=== PATIENT | female | born 1975 | race Caucasian/White ===

== ENCOUNTER → 2018-05-23 06:43 | Outpatient (CLI) | payer OTHER, SELFPAY ==
--- NOTE | 2018-05-23 | DI.MRI.S_ITS ---
PROCEDURE: MR BRAIN (PITUITARY) WWO CON INDICATIONS: hyperprolactinemia TECHNIQUE: Noncontrast sagittal and axial FLAIR, axial gradient echo, axial diffusion and ADC through the brain. Thin-slice sagittal and coronal T1 spin echo, coronal T2 fast spin echo through the pituitary. After the administration contrast, optional dynamic coronal T1 spin echo, thin-slice coronal and sagittal T1 spin echo images through the pituitary fossa; axial T1 spin echo with fat saturation through the brain. COMPARISON: None. FINDINGS: Image quality: Excellent. Pituitary Gland: The pituitary gland shows expected enhancement, with no area of mass lesion producing focal increased or decreased enhancement over the dynamic contrast enhancement phase of this study. Note is made of a vertical orientation of the pituitary stalk, and the right gland craniocaudad dimension is only slightly greater than that on the left (7 mm versus 6 mm). CSF Spaces: Ventricles are normal in size and shape. Basal cisterns are patent. No extra-axial fluid collections. Brain: No intracranial bleeds or mass effects. No abnormal intracranial enhancement. Peck-white matter interface is intact. Diffusion weighted images demonstrate no acute ischemic insults. Brainstem is normal. Normal intravascular flow voids are present. Skull and face: Calvarial marrow is normal in signal. Orbits appear normal. Sinuses: Sinuses and mastoids are clear. IMPRESSION: 1. A pituitary macroadenoma is not present. 2. A discrete pituitary microadenoma is not found. The right pituitary gland craniocaudad dimension is slightly greater than that on the left, 7 mm versus 6 mm, but there is no secondary leftward deviation of the midline pituitary stalk. Overall, an identifiable source of reported hyperprolactinemia is not found. 3. The brain parenchyma elsewhere appears normal. Dictated by: Suraj Vallejo M.D. on 05/23/2018 at 10:24 Approved by: Suraj Vallejo M.D. on 05/23/2018 at 10:29
== END ==
PROVIDERS: Visit Provider Obstetrics & Gynecology
DX: E22.1 Hyperprolactinemia (principal)
CPT/HCPCS: 70553; A9579

== ENCOUNTER → 2020-04-07 14:53 | Outpatient (CLI) | payer OTHER, SELFPAY ==
--- NOTE | 2020-04-07 | DI.MG.S_ITS ---
BILATERAL DIGITAL SCREENING MAMMOGRAM 3D/2D WITH CAD: 04/07/2020 CLINICAL: Routine screening. Comparison is made to exam dated: 01/08/2019 mammogram - [facility]. The tissue of both breasts is heterogeneously dense. This may lower the sensitivity of mammography. Current study was also evaluated with a Computer Aided Detection (CAD) system. No significant masses, calcifications, or other findings are seen in either breast. There has been no significant interval change. IMPRESSION: NEGATIVE There is no mammographic evidence of malignancy. A 1 year screening mammogram is recommended. This exam was interpreted at Station ID: [id number]. NOTE: For mammograms, a report in lay terms will be sent to the patient. Approximately 15% of breast malignancies will not be visualized mammographically. In the management of a palpable breast mass, a negative mammogram must not discourage biopsy of a clinically suspicious lesion. Electronically Signed By: Flip orta/apurva:04/07/2020 15:35:54 letter sent: Normal Exam ACR BI-RADS Category 1: Negative [id number]
== END ==
PROVIDERS: PCP Family Medicine; Referring Provider Family Medicine; Visit Provider Family Medicine
DX: Z12.31 Encounter for screening mammogram for malignant neoplasm of breast (principal)
CPT/HCPCS: 77063; 77067